=== PATIENT | female | born 1940 | race Caucasian/White ===

== ENCOUNTER → 2017-03-04 | Outpatient (CLI) | payer OTHER, BC | LOC: BMCIMAGING 14:30 | PROVIDERS: ATTEND Family Medicine | DX: S42.252A Displaced fracture of greater tuberosity of left humerus, initial encounter for closed fracture (principal) ==

== ENCOUNTER → 2017-03-20 | Outpatient (CLI) | payer OTHER, BC | LOC: BMCIMAGING 11:41 | PROVIDERS: ATTEND Orthopaedic Surgery Hand Surgery | DX: S42.252A Displaced fracture of greater tuberosity of left humerus, initial encounter for closed fracture (principal); X58.XXXA Exposure to other specified factors, initial encounter ==